=== PATIENT | male | born 1960 | race Caucasian/White ===

== ENCOUNTER 2024-03-29 06:42 | Emergency (ER) | payer OTHER, SELFPAY ==
[2024-03-29 06:44] VITALS: BP 140/86
[2024-03-29 06:53] VITALS: BP 168/78
[2024-03-29 07:00] VITALS: BP 153/78
[2024-03-29 07:24] LABS: Urine Albumin 1+ (Neg - Trace); Urine Bilirubin Negative (Negative); Urine Character Slightly Cloudy (Clear); Urine Color Yellow; Urine Glucose 3+ (Negative); Urine Ketone Negative (Negative); Urine Leukocyte 2+ (Negative); Urine Nitrite Positive (Negative); Urine Occult Blood 4+ (Negative); Urine Urobilinogen Negative (Neg - 1+)
--- NOTE | 2024-03-29 07:32 | ED.GENMED ---
History of Present Illness
General
Chief Complaint: Catheter/Tube Problem
Source: patient
Exam Limitations: none
Time Seen by Provider: 03/29/24 07:12
History of Present Illness
History of Present Illness:
63-year-old male with history of diabetes, coronary artery disease and BPH presents with suprapubic discomfort and dysuria. 2 weeks ago, patient had a procedure on his prostate in [place]. This is called a Rezume procedure in which steam is used
to shrink the prostate. He has had an indwelling catheter since the procedure. He was due to have the catheter removed in 2 days. He now notes leaking around the catheter and discomfort in the bladder area. He denies sweats chills fever. He was
nauseous yesterday without vomiting. He completed a 7-day course of Cipro following the procedure but this was 1 week ago. They deny any significant blood in the urine. They do note that there is urine in the bag. No other complaints at this time
Phy Exam
Physical Exam
Physical Exam:
General: Well-appearing male no acute respiratory distress
HEENT: Normocephalic atraumatic
Heart: Regular rate and rhythm no murmurs
Lungs: Clear no wheeze
Abdomen: Soft tender to the suprapubic region. No guarding or rebound no significant distention
exam: Turcios catheter in place. No obvious discharge around the catheter currently. There is urine in the bag
Sepsis
Sepsis Screening
Sepsis Assessment: Sepsis Ruled Out
Sepsis Screen
Sepsis Screen: Sepsis Ruled Out
Date: 03/29/24
Time: 10:52
Course
Orders/Labs/Results
Orders:
Orders
03/29/24 07:11
Urinalysis Reflex To Culture Urgent
Date Specimen was Collected: 03/29/24
Time Specimen was Collected: 07:10
Urine Microscopic Reflex Cult Urgent
Urine Culture Urgent
REJI Source: U
Specimen Description:
Date Specimen was Collected: 03/29/24
Time Specimen was Collected: 07:10
03/29/24 07:29
CT Abd/pelvis W Iv Cont Urgent
Comment:
Reason For Exam: suprapubic pain, recent prostate procedure
03/29/24 07:34
Complete Blood Count/With Diff Urgent
Comprehensive Metabolic Panel Urgent
03/29/24 07:53
Ketorolac [Toradol] 15 mg .ROUTE .STK-MED ONE
03/29/24 07:58
Ketorolac [Toradol] 15 mg IV NOW STA
03/29/24 08:05
Ketorolac [Toradol] 15 mg IV NOW STA
03/29/24 09:52
CefTRIAXone [Rocephin] 1,000 mg IV NOW STA
Abnormal Lab Results
03/29/24 03/29/24
07:11 07:34
MCHC 31.8 L g/dL
(33.0-37.0)
Absolute Neuts (auto) 6.6 H 10^3/uL
(1.4-6.5)
Absolute Monos (auto) 0.7 H 10^3/uL
(0.1-0.6)
Lymphocytes % 17.1 L %
(20.5-51.1)
Glucose 108 H mg/dl
(70-99)
Ur Occult Blood Reflex 4+ A
(Negative)
Urine Nitrite (Reflex) Positive A
(Negative)
Leukocyte Esterase Rfl 2+ A
(Negative)
Urine RBC 26-30 A /HPF
(0-2)
Urine WBC (Reflex) 16-20 A /HPF
(0-5)
Urine Bacteria (Reflex) Many A
(Negative)
Urine Glucose 3+ A
(Negative)
Urine Albumin (Reflex) 1+ A
(Neg - Trace)
03/29/24 07:34
03/29/24 07:34
Vital Signs
Initial and Last Documented VS:
Initial Vital Signs
Temp Pulse Resp BP Pulse Ox
98.4 F 88 20 140/86 100
03/29/24 06:44 03/29/24 06:44 03/29/24 06:44 03/29/24 06:44 03/29/24 06:44
Last Documented Vital Signs
Temp Pulse Resp BP Pulse Ox
98.4 F 88 20 145/77 97
03/29/24 06:44 03/29/24 06:44 03/29/24 06:44 03/29/24 08:00 03/29/24 08:45
MDM/Problems Addressed
Differential Diagnosis Includes:
Patient with dysuria and suprapubic pain with Turcios catheter in place. There is urine in the bag but he describes urine leaking around the bag. Question possible catheter obstruction versus UTI versus cystitis. Will try bedside bladder scan check
labs. Given tenderness in the lower abdomen CT pending.
*Critical Care Note
Total Time (30-74mins, 75-104mins- exclusive of procedures): Not Applicable
Update Note
Update Note:
CT shows a nonspecific stranding around the bladder but no other acute finding. Urinalysis consistent with UTI. Discussed case with patient's surgeon in [place]. They prefer we leave his catheter until follow-up visit next week as after performed
test in the office prior to removing the catheter. He was given a dose of Rocephin here. He has tolerated cephalosporins in the past despite the allergy listed on the chart. He will be sent on cefdinir. Return precautions were given
ED Attending Note
-
Portions of this chart may have been created with voice recognition software.� Occasional wrong word or��sound alike� substitutions may have occurred due to the inherent limitations of voice recognition software.
Discharge Plan
Departure
Patient Disposition: Home (Routine Discharge)
Date of Disposition: 03/29/24
Time of Disposition: 10:50
Patient with high blood pressure during this ER visit?: No
Discharge Problem:
Acute UTI
Instructions: How to Care for Your Turcios Catheter, Male, Urinary Tract Infection, Adult ED
Prescriptions:
New
cefdinir 300 mg capsule
300 mg PO BID Qty: 14 0RF
oxybutynin chloride 5 mg tablet
5 mg PO BID Qty: 14 0RF
Referrals:
UNKNOWN - PT DOES,NOT KNOW [Family Provider] -
Activity Restrictions/Additional Instructions:
As discussed, there appears to be a urinary tract infection. Take antibiotics as directed. Use oxybutynin as needed for bladder spasm. Follow-up with your urologist as planned
Interventions
Interventions:
*Risk Screen - Suicide Last Done: 03/29/24 06:44
*Neglect/Abuse Screening Last Done: 03/29/24 06:44
ED- Fall Risk Assessment Last Done: 03/29/24 07:03
*ED COVID-19 Vaccine History Last Done: 03/29/24 07:02
ED-Male Genitourinary Assessment Last Done: 03/29/24 07:03
Discharge Date and Time
Print Language: PORTUGUESE
[2024-03-29 07:46] LABS: % Basophils 0.9 % (0-2); % Eosinophils 2.8 % (0-6); % Immature Granulocytes 0.4 % (0-0.5); % Lymphocytes 17.1 % (20.5-51.1); % Monocytes 7.7 % (1.7-9.3); % Neutrophils 71.1 % (42.2-75.2); Absolute Basophils 0.1 10^3/uL (0-0.2); Absolute Eosinophils 0.3 10^3/uL (0-0.7); Absolute Lymphocytes 1.6 10^3/uL (1.2-3.4); Absolute Monocytes 0.7 10^3/uL (0.1-0.6); Absolute Neutrophils 6.6 10^3/uL (1.4-6.5); Hematocrit 42.4 % (39.0-52.0); Hemoglobin 13.5 g/dL (13.0-18.0); Mean Corp Hgb Conc. 31.8 g/dL (33.0-37.0); Mean Corpuscular Hgb 27.1 pg (27.0-31.0); Mean Corpuscular Volume 85.1 fL (80.0-94.0); Mean Platelet Volume 10.1 fL (7.4-10.4); Nucleated Red Blood Cells % 0 % (-); Platelet Count 206 10^3/uL (130-400); Red Blood Cell Count 4.98 10^6/uL (4.70-6.10); Red Cell Dist. Width 14.1 % (11.5-14.5); White Blood Cell Count 9.3 10^3/uL (4.8-10.8)
[2024-03-29] MEDS: TORADOL 15 MG IV (07:58)
[2024-03-29 08:00] VITALS: BP 145/77
[2024-03-29 08:05] LABS: ALT (SGPT) 23 U/L (0-50); AST (SGOT) 23 U/L (17-59); Alkaline Phosphatase 56 U/L (38-126); Blood Urea Nitrogen 20 mg/dl (9-20); Calcium 9.2 mg/dl (8.4-10.2); Carbon Dioxide 28 mmol/L (22-30); Chloride 107 mmol/L (98-107); Glucose 108 mg/dl (70-99); Potassium 4.2 mmol/L (3.5-5.1); Sodium 144 mmol/L (135-145); Total Bilirubin 0.4 mg/dl (0.2-1.3); Total Protein 6.4 g/dl (6.3-8.2); eGFR > 60.00
[2024-03-29 08:16] LABS: Urine Bacteria Many (Negative); Urine Red Blood Cell 26-30 /HPF (0-2); Urine Squamous Cell 0-2 /LPF (Few); Urine White Cell 16-20 /HPF (0-5)
[2024-03-29] MEDS: ROCEPHIN 1000 MG IV (10:20)
--- NOTE | 2024-03-29 12:16 | EDRN ---
I did not discharge this patient - only taking them out of the system
== END 2024-03-29 12:14 | disposition home or self-care (01) ==
LOC: EMR 06:42
PROVIDERS: Physician Assistant; EMERGENCY PHYSICIAN Emergency Medicine
DX: N39.0 Urinary tract infection, site not specified (principal); R11.0 Nausea; E11.9 Type 2 diabetes mellitus without complications; I25.10 Atherosclerotic heart disease of native coronary artery without angina pectoris; N40.0 Benign prostatic hyperplasia without lower urinary tract symptoms; Z88.3 Allergy status to other anti-infective agents; Z88.0 Allergy status to penicillin
CPT/HCPCS: 99284; 96375; 96374; 51798; 74177; 80053; 81003; 81015; 85025; 87077; 87086; Q9967